=== PATIENT | female | born 1995 | race African-American/Black ===

== ENCOUNTER 2019-12-11 11:23 | Emergency (ER) | payer BC ==
[~2019-12-11] VITALS: Ht 170.2 cm; Wt 80.9 kg
[2019-12-11 11:24] VITALS: Ht 170.2 cm; Wt 80.9 kg
[2019-12-11] MEDS ORDERED: VYVANSE30 MG PO (11:26)
[2019-12-11] MEDS ORDERED: TRINTELLIX20 MG PO (11:35)
[2019-12-11 12:01] LABS: BILIRUBIN NEGATIVE (NEGATIVE); GLUCOSE NEGATIVE (NEGATIVE); NITRITE NEGATIVE (NEGATIVE); SPECIFIC GRAVITY 1.005 (1.005-1.020); UROBILINOGEN NORMAL (NORMAL)
[2019-12-11 12:02] LABS: KETONE MODERATE mg/dL (NEGATIVE)
[2019-12-11 12:18] LABS: HCG URINE NEGATIVE (NEGATIVE)
[2019-12-11 12:23] LABS: UDS - AMPHET POSITIVE QUAL (NEGATIVE); UDS - BARB NEGATIVE QUAL (NEGATIVE); UDS - BENZO NEGATIVE QUAL (NEGATIVE); UDS - COCAINE NEGATIVE QUAL (NEGATIVE); UDS - OPIATE NEGATIVE QUAL (NEGATIVE); UDS - PCP NEGATIVE QUAL (NEGATIVE); UDS - THC NEGATIVE QUAL (NEGATIVE)
[2019-12-11 12:30] LABS: ANION GAP 13.9 mmol/L (8-16); CALCIUM 9.3 mg/dL (8.5-10.1); CARBON DIOXIDE 23.9 mmol/L (21.0-32.0); POTASSIUM - SERUM 3.8 mmol/L (3.5-5.1)
[2019-12-11 12:36] LABS: BILIRUBIN - TOTAL 1.02 mg/dL (0.2-1.3); PROTEIN - SERUM 7.5 g/dL (6.4-8.2)
[2019-12-11 13:10] LABS: BASOPHILS 0.8 % (0-2); EOSINOPHILS 0.7 % (0-7); HEMOGLOBIN 13.2 g/dL (12-16); IMMATURE GRANULOCYTES 0.1 % (0-5); LYMPHOCYTES 24.6 % (15-50); MCH 28.1 pg (26.0-34.0); MCV 85.1 fL (80.0-100.0); MONOCYTES 5.9 % (2-11); NEUTROPHILS 67.9 % (40-80); PLATELET COUNT 345 10x3/uL (130-400); RDW 13.1 % (11.5-14.5); WBC 7.1 10x3/uL (4.8-10.8)
[2019-12-11 14:34] VITALS: BP 137/81
== END 2019-12-11 14:34 | disposition home or self-care (01) ==
LOC: D.ER 11:23
PROVIDERS: Family Medicine
DX: R53.1 Weakness (principal); F41.9 Anxiety disorder, unspecified; I10 Essential (primary) hypertension; Z72.0 Tobacco use